=== PATIENT | female | born 1975 ===

== ENCOUNTER 2025-01-17 06:06 | Day surgery (SDC) | payer BC, SELFPAY ==
[2025-01-17 06:28] VITALS: BMI 25.9
[2025-01-17] MEDS: SODIUM CHLORIDE 0.9 % (FLUSH) 10 ML SYRINGE IVF (06:39)
[2025-01-17 06:59] VITALS: BP 90/74; PULSE 77; RESP 16; TEMP 36.7; O2SAT 99
[2025-01-17] MEDS: LACTATED RINGERS 500 ML 500 ML 100 ML IV (07:00)
[2025-01-17] MEDS: CEFAZOLIN 1 GM inj IVP (07:32)
[2025-01-17] MEDS: BUPIVACAINE 0.25% 30 ML 50 ML INJECTION (07:42)
--- NOTE | 2025-01-17 09:22 | P.ANES_ITS ---
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
--- NOTE | 2025-01-17 09:22 | W.ANESCHARGE ---
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
[2025-01-17 09:30] VITALS: BP 89/59; PULSE 80; RESP 16; O2SAT 99
[2025-01-17 09:45] VITALS: BP 100/68; PULSE 71; RESP 16; O2SAT 99
--- NOTE | 2025-01-17 09:49 | W.PM.PODPROC ---
Date of Procedure: 01/17/25 Surgeon: Ben Morin DPM Pre-op Diagnosis: 1. Hallux valgus with bunion left 2. tailor's bunion left Post-op Diagnosis: 1. hallux valgus with bunion left 2. tailor's bunion left Type of Procedure: 1. bunionectomy by metatarsal osteotomy left 2. tailor's bunion correction by osteotomy left Indications: patient this side proceed with surgical correction of the left foot. I reviewed the procedure, recovery, expectation potential complications. These include but not limited to: Poor wound healing, infection, under correction, over correction, nonunion, delayed union, hardware irritation, hardware failure, nerve injury, complex regional pain syndrome, deep venous thrombosis, pulmonary embolism possible . She understands risks written consent was obtained. Site marked. Procedure Description: Patient brought the operating room placed supine position on operating table to time IV sedation was initiated local anesthetic injected into the left foot. She was prepped and draped in a sterile fashion. Standard time-out protocol followed. dorsomedial curvilinear incision was made over the 1st metatarsophalangeal joint. Incision was carried down through skin subcutaneous tissues. T-shaped capsular incision was made. The enlarged medial prominence was resected with a sagittal saw. Blunt dissection was carried down to the 1st intermetatarsal space in a standard lateral release was performed. The plantar lateral capsule, dorsal fibular sesamoid ligament and adductor tendon released. Guide pin was placed in the 1st metatarsal head and a long plantar arm osteotomy was performed. Capital fragment was transposed laterally. Capital fragment was temporarily fixated with a K-wire. A 4.0 partially-threaded cancellous screw was inserted using standard technique. 0.045 smooth K-wire was placed proximal and parallel to the screw. K-wire was bent, cut and rotated flush with the bone. First metatarsal head was remodeled with a sagittal saw and rotary bur. Wound was thoroughly irrigated with sterile saline. C-arm confirmed excellent position of correction and hardware. Capsular tissue was remodeled and repaired with 3-0 Vicryl. Subcutaneous tissues reapproximated with 4-0 Monocryl and skin closed with 4-0 Prolene. Linear incisions made over the dorsal lateral aspect of the 5th metatarsal head and distal shaft. The incision was carried down through skin subcu tissues. Linear capsular incision was made. The enlarged lateral prominence of the 5th metatarsal head resected with a sagittal saw. a long plantar arm osteotomy was then performed and the capital fragment was transposed medially. C-arm confirmed position. There is and fixated wit 2.5mm screws. Fifth metatarsal head remodeled with a rotary bur. C-arm confirmed excellent correction and position. Wound was irrigated normal sterile saline. Capsular tissue remodeled with 4-0 Vicryl. Subcutaneous tissues reapproximated with 4-0 Monocryl and skin closed with 4-0 Prolene. Sterile dressing was then applied. Tourniquet was released and normal capillary fill time returned all digits. She has Transferred from OR to PACU vital signs stable vascular status intact. cam boot placed. She is given both written and verbal postop instructions. She is weight-bearing to the heel with crutches. She will follow up in clinic next week. She is given oxycodone for pain. Anesthesia: MAC Hemostasis: ankle Estimated blood loss (mL): 2 Provider Operated C-arm: C-arm fluoroscopy operated by Ben Morin DPM for left foot surgery. Twenty-five spot images were obtained. Fluoroscopy time was 00:00:19. Implants: Fixos 4.0 cannulated screw x1, 2.5 mm screws x2, 0.045 smooth K-wire x1 Specimens: none sent Disposition: same day
[2025-01-17 10:00] VITALS: BP 105/74; PULSE 69; RESP 16; O2SAT 99
[2025-01-17 10:15] VITALS: BP 106/70; PULSE 72; RESP 16; O2SAT 99
== END 2025-01-17 10:50 | disposition home or self-care (01) ==
PROVIDERS: PCP Family Medicine; Visit Provider Podiatrist
PROC: (CPT 28292; principal; 2025-01-17 07:15)
DX: M20.12 Hallux valgus (acquired), left foot (principal); M21.622 Bunionette of left foot; M79.672 Pain in left foot
CPT/HCPCS: 28296; 28308; 01480; 73620; 76000; C1713; J0665; J0690; J1100; J2704; J3010; J7120